=== PATIENT | female | born 1960 | race African-American/Black ===

== ENCOUNTER 2024-04-30 04:43 | Emergency (ER) | payer MEDICARE ==
[~2024-04-30] VITALS: Ht 154.9 cm; Wt 46.0 kg
[2024-04-30 04:46] VITALS: O2SAT 99
[2024-04-30 05:23] VITALS: BP 184/91; PULSE 82; RESP 13; TEMP 98.4
[2024-04-30] MEDS: LEVETIRACETAM 500MG TABLET PO ONE (05:46)
== END 2024-04-30 06:58 | disposition left against medical advice (07) ==
LOC: ER 04:51
DX: R56.9 Unspecified convulsions (principal); F17.200 Nicotine dependence, unspecified, uncomplicated
CPT/HCPCS: 93005; 99283

== ENCOUNTER 2024-08-24 02:01 | Emergency (ER) | payer MEDICARE ==
[~2024-08-24] VITALS: Ht 154.9 cm; Wt 45.0 kg
[2024-08-24 02:03] VITALS: O2SAT 97
[2024-08-24] MEDS: LEVETIRACETAM 500MG TABLET PO ONE (02:49)
[2024-08-24] MEDS: LORAZEPAM 1MG TABLET PO ONE (03:07)
[2024-08-24 03:31] VITALS: BP 184/95; PULSE 92; RESP 15; TEMP 36.89184; O2SAT 97
[2024-08-24] MEDS ORDERED: KEPP500 MT (03:32)
== END 2024-08-24 07:23 | disposition home or self-care (01) ==
LOC: ER 02:01
DX: R56.9 Unspecified convulsions (principal); S00.532A Contusion of oral cavity, initial encounter; X58.XXXA Exposure to other specified factors, initial encounter; Y93.89 Activity, other specified; Y92.89 Other specified places as the place of occurrence of the external cause; Y99.8 Other external cause status
CPT/HCPCS: 99283

== ENCOUNTER 2024-12-06 00:06 | Emergency (ER) | payer MEDICARE ==
[~2024-12-06] VITALS: Ht 165.1 cm; Wt 41.0 kg
[~2024-12-06 00:06] MED LIST: AMLO10TA80 PO; KEPPSOL PO; LOSA25TA26 MT
[2024-12-06 00:07] VITALS: TEMP 36.7; O2SAT 98
[2024-12-06] MEDS ORDERED: LEVE1000 MT (00:40)
[2024-12-06] MEDS: LEVETIRACETAM 1000MG PREMIX 100 ML IV ONE (01:46)
[2024-12-06 03:38] VITALS: BP 144/87; PULSE 87; RESP 14; O2SAT 96
== END 2024-12-06 03:19 | disposition home or self-care (01) ==
LOC: ER 00:06
DX: R56.9 Unspecified convulsions (principal); Z79.899 Other long term (current) drug therapy
CPT/HCPCS: 99284; 96365; J1953

== ENCOUNTER 2024-12-10 05:17 | Inpatient (IN) | payer MEDICARE ==
[~2024-12-10] VITALS: Ht 160 cm; Wt 45.8 kg
[~2024-12-10 05:17] MED LIST changes: +LEVE1000 MT
[2024-12-10 05:21] VITALS: O2SAT 100
[2024-12-10] MEDS: SODIUM CHLORIDE 0.9% 1,000 ML IV ONE (05:51)
[2024-12-10] MEDS: LEVETIRACETAM 1000MG PREMIX 1,000 ML IV ONE (05:51)
[2024-12-10 05:53] LABS: HEMATOCRIT. 39.7 % (36.0-48.0); HEMOGLOBIN. 12.5 g/dL (12.0-16.0); MEAN CORPUSCULAR HEMOGLOBIN 25.9 pg (28.0-32.0); MEAN CORPUSCULAR HGB CONC 31.5 g/dL (31.0-37.0); MEAN CORPUSCULAR VOLUME 82.3 fL (81.0-99.0); PLATELET 390 x1000/uL (130-400); RED BLOOD CELL COUNT 4.82 mill/uL (4.2-5.4); RED CELL DISTRIBUTION WIDTH 23.4 % (11.6-14.6); WHITE BLOOD COUNT 21.2 x1000/uL (4.5-11.0)
[2024-12-10 06:02] LABS: CHLORIDE 102 mEq/L (98-107); POTASSIUM 3.1 mEq/L (3.5-5.1); SODIUM 136 mEq/L (136-145)
[2024-12-10 06:03] LABS: CALCIUM 10.2 mg/dL (8.7-10.4); CARBON DIOXIDE 14 mEq/L (21-32)
[2024-12-10 06:08] LABS: CREATININE 1.3 mg/dL (0.6-1.0); GLUCOSE 210 mg/dL (70-105); UREA NITROGEN BLOOD 8 mg/dL (9-23)
[2024-12-10 06:09] LABS: ACETAMINOPHEN < 2 ug/mL (10-30)
[2024-12-10 06:10] LABS: CREATINE KINASE 204 IU/L (34-145); DIFFERENTIAL COMMENT 1
[2024-12-10 06:11] LABS: ETHANOL BLOOD < 10 mg/dL (<10)
[2024-12-10 06:13] LABS: LACTIC ACID 9.8 mmol/L (0.4-2.0)
[2024-12-10] MEDS: LEVETIRACETAM 1000MG PREMIX 100 ML IV NR (07:15)
[2024-12-10] MEDS ORDERED: SODIUM CHLORIDE 0.9% 1,000 ML IV SCH ×2 (07:30→18:00)
[2024-12-10] MEDS: DEXT 5%/0.9% NACL 1,000 ML IV SCH ×2 (07:30→17:31)
[2024-12-10] MEDS ORDERED: MAGNESIUM 2 G PREMIX 50 ML IV PRN ×2 (07:30→18:00)
[2024-12-10] MEDS ORDERED: SODIUM PHOSPHATE 15 MMOL in SODIUM CHLORIDE 0.9% 245 ML IV PRN ×2 (07:30→18:00)
[2024-12-10] MEDS ORDERED: POTASSIUM CHLORIDE 40 MEQ in SODIUM CHLORIDE 0.9% 230 ML IV PRN ×2 (07:30→18:00)
[2024-12-10] MEDS ORDERED: KCL 20MEQ/100ML PREMIX 100 ML IV PRN ×2 (07:30→18:00)
[2024-12-10] MEDS: INSULIN REGULAR (HUMULIN R) 1000UNITS/10ML VIAL IV NR (07:30)
[2024-12-10] MEDS ORDERED: BLOOD SUGAR DIAGNOSTIC STRIP TEST PRN ×2 (07:30→18:00)
[2024-12-10 07:35] LABS: ANISOCYTOSIS 3+; PLATELET ESTIMATE NORMAL
[2024-12-10] MEDS ORDERED: ACETAMINOPHEN 325MG TABLET PO PRN (07:45)
[2024-12-10] MEDS ORDERED: CLONIDINE 0.1MG TABLET PO PRN (07:45)
[2024-12-10] MEDS ORDERED: DOCUSATE SODIUM 100MG CAPSULE PO PRN (07:45)
[2024-12-10] MEDS: INSULIN REGULAR 100U/100ML PMX 100 ML IV SCH (07:45)
[2024-12-10] MEDS ORDERED: IPRATROPIUM/ALBUTEROL 0.5-3(2.5)MG/3ML NEB HHN PRN (07:45)
[2024-12-10] MEDS ORDERED: ONDANSETRON HCL 4MG/2ML INJ IV PRN (07:45)
[2024-12-10] MEDS ORDERED: GUAIFENESIN 200MG/10ML SUGAR FREE UDC PO PRN (07:45)
[2024-12-10] MEDS ORDERED: INSULIN REGULAR 100U/100ML PMX 100 ML IV SCH (08:00)
[2024-12-10] MEDS: BLOOD SUGAR DIAGNOSTIC STRIP TEST SCH (08:01)
[2024-12-10 08:39] LABS: PHOSPHORUS 3.6 mg/dL (2.5-4.9)
[2024-12-10] MEDS ORDERED: POTASSIUM CHLORIDE 40 MEQ in DEXT 5% WATER 230 ML IV ONE (09:00)
[2024-12-10] MEDS: SODIUM BICARBONATE 100 MEQ in SODIUM CHLORIDE 0.45% 900 ML IV ONE (09:00)
[2024-12-10] MEDS ORDERED: DEXTROSE 50% WATER 50ML SYRINGE IV PRN ×2 (09:00→18:00)
[2024-12-10] MEDS ORDERED: LEVETIRACETAM 1,000MG in NACL 100ML PREMIX IV SCH (09:00)
[2024-12-10] MEDS ORDERED: LORAZEPAM 2MG/ML INJ IV PRN (09:00)
[2024-12-10 09:48] LABS: BG BASE EXCESS -7.8 mmol/L (-2.0-3.0); BG CARBOXYHEMOGLOBIN 0.7 % (0.5-1.5); BG DEOXYHEMOGLOBIN 1.3 % (0.0-5.0); BG FRACTION INSPIRED OXYGEN 36; BG HCO3 ACT 17.3 mmol/L (21.0-28.0); BG METHEMOGLOBIN 0.3 % (0.5-1.5); BG OXYGEN SATURATION 98.7 % (94.0-98.0); BG OXYHEMOGLOBIN 97.7 % (94.0-98.0); BG PH 7.325 (7.350-7.450); BG SAMPLE SITE RIGHT RADIAL; BG TOTAL HEMOGLOBIN 12.3 g/dL (12.0-16.0); BG VENT MODE NASAL CANNULA
[2024-12-10 09:48] LABS: CHLORIDE 103 mEq/L (98-107); POTASSIUM 3.8 mEq/L (3.5-5.1); SODIUM 137 mEq/L (136-145)
[2024-12-10 09:49] LABS: CARBON DIOXIDE 19 mEq/L (21-32)
[2024-12-10 09:54] LABS: CREATININE 1.1 mg/dL (0.6-1.0); GLUCOSE 88 mg/dL (70-105); UREA NITROGEN BLOOD 6 mg/dL (9-23)
[2024-12-10 09:56] LABS: AMMONIA 33 uMol/L (<32); BETA HYDROXYBUTYRATE 0.8 mMol/L (0.0-0.3)
[2024-12-10] MEDS ORDERED: INSULIN LISPRO 100 UNITS/ML SUBCUT SCH (10:00)
[2024-12-10] MEDS ORDERED: BLOOD SUGAR DIAGNOSTIC STRIP TEST SCH ×2 (10:00→18:00)
[2024-12-10] MEDS: KCL 20MEQ/100ML X 2 FOR TOTAL KCL 40MEQ/200ML IV SCH (10:04)
[2024-12-10] MEDS: PIPERACILLIN/TAZO 3.375G/50ML 50 ML IV SCH (10:05)
[2024-12-10] MEDS: VANCOMYCIN 1GM/200ML PMX (BAXTER) IV NR (10:05)
[2024-12-10] MEDS: PANTOPRAZOLE SODIUM 40 MG/VIAL IV SCH (10:06)
[2024-12-10] MEDS: AMLODIPINE 5MG TABLET PO SCH (10:24)
[2024-12-10] MEDS: HALOPERIDOL LACTATE 5MG/ML VIAL IM NR (10:25)
[2024-12-10 12:23] LABS: CARBON DIOXIDE 19 mEq/L (21-32); CHLORIDE 105 mEq/L (98-107); POTASSIUM 4.2 mEq/L (3.5-5.1); SODIUM 135 mEq/L (136-145)
[2024-12-10 12:24] LABS: CALCIUM 9.1 mg/dL (8.7-10.4)
[2024-12-10 12:28] LABS: CREATININE 0.9 mg/dL (0.6-1.0); GLUCOSE 156 mg/dL (70-105)
[2024-12-10 12:29] LABS: UREA NITROGEN BLOOD 6 mg/dL (9-23)
[2024-12-10 12:31] LABS: PHOSPHORUS 2.4 mg/dL (2.5-4.9)
[2024-12-10] MEDS: INSULIN LISPRO 100 UNITS/ML SUBCUT SCH (14:57)
[2024-12-10 16:48] VITALS: BP 137/90; PULSE 95; RESP 21; TEMP 36.7; O2SAT 98
[2024-12-10] MEDS: DEXTROSE 50% WATER 50ML SYRINGE IV PRN (17:24)
[2024-12-10 18:51] LABS: CHLORIDE 106 mEq/L (98-107); POTASSIUM 3.4 mEq/L (3.5-5.1); SODIUM 137 mEq/L (136-145)
[2024-12-10 18:52] LABS: CARBON DIOXIDE 20 mEq/L (21-32)
[2024-12-10 18:59] LABS: CREATINE KINASE 537 IU/L (34-145); PHOSPHORUS 1.5 mg/dL (2.5-4.9)
[2024-12-10 19:00] LABS: TROPONIN I HIGH SENSITIVITY < 4 ng/L (3.0-34)
[2024-12-10 20:00] VITALS: BP 162/108; PULSE 77; RESP 16; TEMP 36.2; O2SAT 97
[2024-12-10 20:08] VITALS: BP 137/90; PULSE 95; RESP 21; TEMP 36.7
[2024-12-10] MEDS: HYDRALAZINE 20MG/ML VIAL IV PRN (21:06)
[2024-12-10 21:42] LABS: CHLORIDE 108 mEq/L (98-107); POTASSIUM 3.8 mEq/L (3.5-5.1); SODIUM 139 mEq/L (136-145)
[2024-12-10 21:43] LABS: CARBON DIOXIDE 20 mEq/L (21-32)
[2024-12-10 21:51] LABS: PHOSPHORUS 2.1 mg/dL (2.5-4.9)
[2024-12-10] MEDS: LEVETIRACETAM 500MG PREMIX 100ML IV SCH (21:54)
[2024-12-11] VITALS: BP 153/78; PULSE 99; RESP 20; TEMP 36.5; O2SAT 98
[2024-12-11 00:34] LABS: CREATINE KINASE 902 IU/L (34-145)
[2024-12-11 00:42] LABS: TROPONIN I HIGH SENSITIVITY < 4 ng/L (3.0-34)
[2024-12-11] MEDS: ACETAMINOPHEN 325MG TABLET PO PRN (03:03)
[2024-12-11 04:00] VITALS: BP 153/79; PULSE 90; RESP 18; TEMP 35.6; O2SAT 97
[2024-12-11 07:14] LABS: LACTIC ACID 2.9 mmol/L (0.4-2.0)
[2024-12-11 07:15] LABS: BASOPHILS % 0.1 % (0.0-2.0); HEMATOCRIT. 30.7 % (36.0-48.0); LYMPHOCYTES % 7.5 % (20.0-50.0); MEAN CORPUSCULAR HEMOGLOBIN 26.1 pg (28.0-32.0); MEAN CORPUSCULAR HGB CONC 32.4 g/dL (31.0-37.0); MEAN CORPUSCULAR VOLUME 80.3 fL (81.0-99.0); MEAN PLATELET VOLUME 8.7 fl (7.4-10.4); MONOCYTES % 4.2 % (2.0-8.0); NEUTROPHILS % 88.2 % (40.0-76.0); PLATELET 235 x1000/uL (130-400); RED BLOOD CELL COUNT 3.83 mill/uL (4.2-5.4); RED CELL DISTRIBUTION WIDTH 23.4 % (11.6-14.6); WHITE BLOOD COUNT 13.9 x1000/uL (4.5-11.0)
[2024-12-11 07:19] LABS: ALANINE AMINOTRANSFERASE 17 IU/L (10-49); ALBUMIN 4.1 g/dL (3.2-4.8)
[2024-12-11 07:20] LABS: ASPARTATE AMINOTRANSFERASE 56 IU/L (<34); BILIRUBIN DIRECT 0.2 mg/dL (<=3.0); BILIRUBIN TOTAL 0.8 mg/dL (0.1-1.0); PROTEIN TOTAL 7.7 g/dL (6.0-8.3)
[2024-12-11 07:31] LABS: DIFFERENTIAL COMMENT 1
[2024-12-11 08:00] VITALS: BP 161/101; PULSE 87; RESP 20; TEMP 36.6; O2SAT 98
[2024-12-11 08:29] LABS: CLARITY URINE CLEAR (CLEAR); COLOR URINE YELLOW (YELLOW); GLUCOSE URINE NEGATIVE (NEGATIVE); KETONES URINE NEGATIVE (NEGATIVE); LEUKOCYTE ESTERASE URINE NEGATIVE (NEGATIVE); NITRITE URINE NEGATIVE (NEGATIVE); OCCULT BLOOD URINE NEGATIVE (NEGATIVE); PH URINE 5.5 (4.5-8.0); PROTEIN URINE NEGATIVE (NEGATIVE); SPECIFIC GRAVITY URINE 1.013 (1.005-1.030); UROBILINOGEN URINE 0.2 E.U./dL (0.2-1.0)
[2024-12-11 08:52] LABS: *AMPHETAMINES SCREEN URINE NEGATIVE (NEGATIVE); *BARBITURATES SCREEN URINE NEGATIVE (NEGATIVE); *BENZODIAZEPINES SCREEN URINE NEGATIVE (NEGATIVE); *COCAINE SCREEN URINE NEGATIVE (NEGATIVE); METHADONE URINE SCREEN NEGATIVE (NEGATIVE); OPIATES URINE SCREEN NEGATIVE (NEGATIVE)
[2024-12-11 08:53] LABS: CANNABINOID URINE SCREEN PRESUMPTIVE POSITIVE (NEGATIVE); ECSTASY MDMA SCREEN URINE NEGATIVE (NEGATIVE); PHENCYCLIDINE URINE SCREEN NEGATIVE (NEGATIVE)
[2024-12-11] MEDS: VANCOMYCIN 1GM/200ML PMX (BAXTER) IV SCH (08:57)
[2024-12-11] MEDS ORDERED: VANCOMYCIN 750MG/150ML (BAXTER) IV SCH (09:00)
[2024-12-11 09:16] LABS: CHLORIDE 107 mEq/L (98-107); POTASSIUM 3.7 mEq/L (3.5-5.1); SODIUM 138 mEq/L (136-145)
[2024-12-11 09:17] LABS: CALCIUM 9.3 mg/dL (8.7-10.4); CARBON DIOXIDE 17 mEq/L (21-32)
[2024-12-11 09:22] LABS: CREATININE 0.9 mg/dL (0.6-1.0); GLUCOSE 146 mg/dL (70-105); TRIGLYCERIDE 41 mg/dL (0-150)
[2024-12-11 09:23] LABS: LDL CHOLESTEROL 95 mg/dL (5-100)
[2024-12-11 09:24] LABS: CHOLESTEROL 200 mg/dL (<200); HDL CHOLESTEROL 75 mg/dL (>65)
[2024-12-11 09:27] LABS: T4 FREE 1.58 ng/dL (0.89-1.76); THYROID STIMULATING HORMONE 0.24 uIU/mL (0.55-4.78)
[2024-12-11 09:29] LABS: UREA NITROGEN BLOOD < 5 mg/dL (9-23)
== END 2024-12-11 12:01 | disposition left against medical advice (07) | DRG 871 ==
LOC: ER 05:17 → 7WST 07:16 → EDBEDREQ 07:29 → EDBEDREQSVC 07:29 → EDBEDREQTM 07:29 → EDBEDREQSVC 14:33
PROVIDERS: ADMIT Internal Medicine; ATTEND Internal Medicine
DX: A41.9 Sepsis, unspecified organism (principal); J96.01 Acute respiratory failure with hypoxia; E72.20 Disorder of urea cycle metabolism, unspecified; E87.20 Acidosis, unspecified; M62.82 Rhabdomyolysis; N17.9 Acute kidney failure, unspecified; G40.901 Epilepsy, unspecified, not intractable, with status epilepticus; E11.65 Type 2 diabetes mellitus with hyperglycemia; Z53.29 Procedure and treatment not carried out because of patient's decision for other reasons; E87.6 Hypokalemia; J06.9 Acute upper respiratory infection, unspecified; F15.10 Other stimulant abuse, uncomplicated; I10 Essential (primary) hypertension; Z79.899 Other long term (current) drug therapy; S01.81XA Laceration without foreign body of other part of head, initial encounter; X58.XXXA Exposure to other specified factors, initial encounter; Y93.89 Activity, other specified; Y92.89 Other specified places as the place of occurrence of the external cause; Y99.8 Other external cause status
CPT/HCPCS: 36415; 36600; 71045; 80048; 80051; 80061; 80076; 80305; 80307; 80320; 80329; 81003; 82010; 82140; 82375; 82550; 82805; 82962; 83036; 83605; 83735; 83880; 83930; 84100; 84145; 84439; 84443; 84484; 85025; 93005; 93970; 99285; A4606; J0360; J1630; J1815; J1953; J2405; J2470; J2543; J3370; J3480; J3490; J7030; G0480